=== PATIENT | female | born 1975 | race Two or more races ===

== ENCOUNTER 2018-07-28 03:49 | Emergency (ER) | payer BC, MEDICAID ==
[~2018-07-28] VITALS: Ht 162.6 cm; Wt 96.6 kg
[2018-07-28 04:22] VITALS: BP 130/71
[2018-07-28] MEDS ORDERED: cefTRIAXone SOD 1,000 MG VL IM ONE (05:30)
[2018-07-28 06:08] LABS: Urine Bacteria MANY /hpf (None Seen); Urine Blood 3+ /uL (Negative); Urine Specific Gravity 1.016 (1.001-1.035); Urine WBC 224 /hpf (0 - 5)
== END 2018-07-28 05:32 | disposition home or self-care (01) ==
LOC: ER 03:50
DX: N39.0 Urinary tract infection, site not specified (principal)
CPT/HCPCS: 81001; 96372; 99283; J0696